=== PATIENT | male | born 1965 | race Caucasian/White ===

== ENCOUNTER 2020-08-14 19:56 | Inpatient (IN) | payer OTHER ==
[2020-08-14 21:08] LABS: BILIRUBIN NEGATIVE (NEGATIVE); BLOOD 3+ Ery/uL (NEGATIVE); CLARITY CLEAR (CLEAR); COLOR YELLOW (YELLOW); GLUCOSE (U) 3+ mg/dL (NORMAL); LEUKOCYTES NEGATIVE Leu/uL (NEGATIVE); NITRITE NEGATIVE (NEGATIVE); PROTEIN TRACE (LOW) mg/dL (NEGATIVE); UROBILINOGEN 0.2 mg/dL (0.2-1.0); pH 5.5 (5.0-9.0)
[2020-08-14 21:18] LABS: BACTERIA 1+; SQUAMOUS EPITHELIAL CELLS RARE; URINARY WBC TNTC
[2020-08-14 21:22] LABS: BASOPHIL 0.2 % (0-2); EOSINOPHIL 0.2 % (0-5); HCT 42.4 % (42.0-52.0); HGB 14.4 g/dl (13.2-18.0); LYMPHOCYTE 6.3 % (15-48); MCH 32.1 pg (25.0-31.0); MCV 94.4 fL (78.0-100.0); MONOCYTE 11.1 % (0-12); MPV 10.2 fL (6.0-9.5); NEUTROPHIL 81.7 % (41-80); NRBC 0; PLT 208 K/uL (150-400); RBC 4.49 M/uL (4.70-6.00); RDW 11.9 % (11.5-14.0); WBC 12.6 K/uL (4.0-10.5)
[2020-08-14 21:53] LABS: ALBUMIN 2.8 g/dL (3.4-5.0); BILIRUBIN - TOTAL 0.5 mg/dL (0.2-1.0); BUN/CREAT RATIO (CALC) 13.4 RATIO; CREATININE 1.42 mg/dL (0.67-1.17); GLOBULIN (CALCULATION) 4.7 g/dL; POTASSIUM 4.4 mmol/L (3.5-5.1); TOTAL PROTEIN 7.5 g/dL (6.4-8.2)
[2020-08-14 22:19] LABS: CORONAVIRUS 2019 SARS-COV-2 NEGATIVE (NEGATIVE); INFLUENZA A NAA NEGATIVE (NEGATIVE)
[2020-08-15] MEDS ORDERED: TRAZODONE HCL150 MG PO (00:51)
[2020-08-15] MEDS ORDERED: XANAX0.5 MG PO (00:51)
[2020-08-15] MEDS ORDERED: GLUCOPHAGE850 MG PO (00:52)
[2020-08-15] MEDS ORDERED: VRAYLAR3 MG PO (00:53)
[2020-08-15] MEDS ORDERED: PRINIVIL20 MG PO (00:53)
[2020-08-15] MEDS ORDERED: VICODIN 10/3251 EACH PO (00:54)
[2020-08-15] MEDS ORDERED: PRISTIQ100 MG PO (00:55)
[2020-08-15] MEDS ORDERED: ADDERALL 30 MG30 MG PO (00:56)
[2020-08-15] MEDS ORDERED: MOBIC7.5 MG PO (00:56)
[2020-08-15 05:43] LABS: BASOPHIL 0.3 % (0-2); EOSINOPHIL 0.8 % (0-5); HCT 39.5 % (42.0-52.0); HGB 13.6 g/dl (13.2-18.0); LYMPHOCYTE 10.6 % (15-48); MCH 32.2 pg (25.0-31.0); MCHC 34.4 g/dL (32.0-36.0); MCV 93.6 fL (78.0-100.0); MONOCYTE 10.5 % (0-12); MPV 10.1 fL (6.0-9.5); NRBC 0; PLT 228 K/uL (150-400); RBC 4.22 M/uL (4.70-6.00); RDW 11.9 % (11.5-14.0)
[2020-08-15 05:54] LABS: INR 1.26 (0.9-1.2)
[2020-08-15 06:01] LABS: BUN/CREAT RATIO (CALC) 17.2 RATIO; CREATININE 1.28 mg/dL (0.67-1.17); MAGNESIUM 1.9 mg/dL (1.8-2.4); PHOSPHORUS 2.3 mg/dL (2.6-4.7); POTASSIUM 3.8 mmol/L (3.5-5.1)
[2020-08-15] MEDS ORDERED: NORVASC5 MG PO (11:05)
[2020-08-15] MEDS ORDERED: ANASTROZOLE1 MG PO (11:06)
[2020-08-15] MEDS ORDERED: XYOSTED50 MG/0.5 IM (11:08)
[2020-08-16 05:54] LABS: BASOPHIL 0.1 % (0-2); EOSINOPHIL 1.6 % (0-5); HCT 38.3 % (42.0-52.0); HGB 12.9 g/dl (13.2-18.0); LYMPHOCYTE 13.5 % (15-48); MCH 31.9 pg (25.0-31.0); MCHC 33.7 g/dL (32.0-36.0); MCV 94.6 fL (78.0-100.0); MONOCYTE 10.4 % (0-12); NEUTROPHIL 73.8 % (41-80); NRBC 0; PLT 263 K/uL (150-400); RBC 4.05 M/uL (4.70-6.00); RDW 11.9 % (11.5-14.0); WBC 7.7 K/uL (4.0-10.5)
[2020-08-16 06:15] LABS: ALBUMIN 2.3 g/dL (3.4-5.0); BILIRUBIN - TOTAL 0.3 mg/dL (0.2-1.0); BUN/CREAT RATIO (CALC) 16.1 RATIO; CREATININE 1.18 mg/dL (0.67-1.17); GLOBULIN (CALCULATION) 4.4 g/dL; POTASSIUM 4.5 mmol/L (3.5-5.1); TOTAL PROTEIN 6.7 g/dL (6.4-8.2)
--- NOTE | 2020-08-16 16:02 | NUR ---
08/16/20 Mr. Gil shares a home with his girlfriend. 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 Mr. Gil reports to be able to meet his financial obligations. - He has a history of depression and anxiety and is followed by a psychiatrist in [place]. His PCP is Nidia Mast NP, in [facility]. - Information was provided re: [employer].
[2020-08-17 06:04] LABS: BASOPHIL 0.3 % (0-2); EOSINOPHIL 1.6 % (0-5); HCT 40.9 % (42.0-52.0); HGB 13.6 g/dl (13.2-18.0); MCH 31.5 pg (25.0-31.0); MCHC 33.3 g/dL (32.0-36.0); MCV 94.7 fL (78.0-100.0); MONOCYTE 9.7 % (0-12); MPV 9.9 fL (6.0-9.5); NEUTROPHIL 66.8 % (41-80); NRBC 0; PLT 324 K/uL (150-400); RBC 4.32 M/uL (4.70-6.00); RDW 11.9 % (11.5-14.0); WBC 6.9 K/uL (4.0-10.5)
[2020-08-17 06:29] LABS: CREATININE 1.09 mg/dL (0.67-1.17)
[2020-08-18 06:38] LABS: BASOPHIL 0.4 % (0-2); EOSINOPHIL 1.6 % (0-5); HCT 38.5 % (42.0-52.0); HGB 13.1 g/dl (13.2-18.0); LYMPHOCYTE 19.5 % (15-48); MCH 31.8 pg (25.0-31.0); MCV 93.4 fL (78.0-100.0); MONOCYTE 9.8 % (0-12); MPV 9.8 fL (6.0-9.5); NEUTROPHIL 68.1 % (41-80); NRBC 0; PLT 321 K/uL (150-400); RBC 4.12 M/uL (4.70-6.00); RDW 11.9 % (11.5-14.0); WBC 6.9 K/uL (4.0-10.5)
[2020-08-18 06:59] LABS: BUN/CREAT RATIO (CALC) 10.5 RATIO; CREATININE 0.95 mg/dL (0.67-1.17); POTASSIUM 3.6 mmol/L (3.5-5.1)
[2020-08-18] MEDS ORDERED: LEVAQUIN500 MG PO (09:26)
== END 2020-08-18 10:13 | disposition home or self-care (01) | DRG 872 ==
LOC: FER 19:56 → FMS 08-15 00:03
PROVIDERS: Internal Medicine; Nurse Practitioner Family; ADMIT Internal Medicine
DX: A41.9 Sepsis, unspecified organism (principal); N12 Tubulo-interstitial nephritis, not specified as acute or chronic; N17.9 Acute kidney failure, unspecified; E87.1 Hypo-osmolality and hyponatremia; I10 Essential (primary) hypertension; Z20.822 Contact with and (suspected) exposure to COVID-19; F41.9 Anxiety disorder, unspecified; G89.29 Other chronic pain; M54.2 Cervicalgia; M19.90 Unspecified osteoarthritis, unspecified site; F32.9 Major depressive disorder, single episode, unspecified; E11.21 Type 2 diabetes mellitus with diabetic nephropathy; E11.65 Type 2 diabetes mellitus with hyperglycemia
CPT/HCPCS: 36415; 36600; 80048; 80053; 81001; 82009; 82803; 82962; 83036; 83605; 83735; 84100; 84153; 85025; 85610; 87088; 94010; J0696; J1650; J1956; J7030; U0002